=== PATIENT | female | born 1980 | race African-American/Black ===

== ENCOUNTER 2021-02-27 14:42 | Emergency (ER) | payer MEDICARE, MEDICAID ==
[2021-02-27] MEDS ORDERED: Ondansetron ODT 4 MG TAB ONE (15:03)
[2021-02-27] MEDS ORDERED: Morphine 4 MG/ML VIAL ONE (15:03)
== END 2021-02-27 16:41 | disposition home or self-care (01) ==
LOC: BURERS 14:42
DX: G89.18 Other acute postprocedural pain (principal); M54.2 Cervicalgia; E78.5 Hyperlipidemia, unspecified; E78.00 Pure hypercholesterolemia, unspecified; I10 Essential (primary) hypertension
CPT/HCPCS: 72125; 96372; J2270; Q0162